=== PATIENT | male | born 1975 | race Caucasian/White ===

== ENCOUNTER 2019-07-08 11:37 | Emergency (ER) | payer MEDICAID ==
[~2019-07-08] VITALS: Ht 175.3 cm; Wt 105.2 kg
[2019-07-08 12:05] VITALS: BP 188/126
--- NOTE | 2019-07-08 12:05 | NUR ---
PT AMBULATED TO ER BED 07
--- NOTE | 2019-07-08 12:12 | NUR ---
44/M presents to ED with complaints of LLQ pain that started around 1700 last night. Pt states he has never had pain like this before. Pt has hx of HTN but is not currently on any home medications. Pt describes pain as dull, non radiating, 8/10, constant. Pt states he had x1 episode of vomiting prior to arrival. Abdomen soft, active bowel sounds x4 quadrants. No active vomiting.
--- NOTE | 2019-07-08 13:08 | NUR ---
PT WENT TO XRAY VIA WHEELCHAIR.
--- NOTE | 2019-07-08 13:17 | NUR ---
PT RETURNED FROM RADIOLOGY VIA WHEELCHAIR.
--- NOTE | 2019-07-08 15:09 | NUR ---
PT RESTING IN BED USING CELLPHONE. PT DENIES PAIN AT THIS TIME. WILL CONTINUE TO MONITOR.
--- NOTE | 2019-07-08 15:25 | NUR ---
BP 173/108, ER MD COLINDRES MADE AWARE. PER , OK TO DISCHARGE.
[2019-07-08 15:29] VITALS: BP 173/108
--- NOTE | 2019-07-08 15:29 | NUR ---
Patient discharged with v/s stable. Written and verbal after care instructions given and explained. Patient verbalized understanding. Ambulatory with steady gait. All questions addressed prior to discharge. Advised to follow up with PMD.
== END 2019-07-08 15:29 | disposition home or self-care (01) ==
LOC: MED 11:37
DX: R10.32 Left lower quadrant pain (principal); I10 Essential (primary) hypertension
CPT/HCPCS: 74018; 99283

== ENCOUNTER 2019-08-03 17:48 | Emergency (ER) | payer MEDICAID | END 2019-08-03 20:56 | disposition home or self-care (01) | LOC: MED 17:48 | PROC: 4A02XFZ Measurement of Cardiac Rhythm, External Approach (ICD-10-PCS; principal; 2019-08-03) | DX: M54.32 Sciatica, left side (principal); I10 Essential (primary) hypertension | CPT/HCPCS: 93005; 99283 ==